=== PATIENT | female | born 1950 | race Caucasian/White ===

== ENCOUNTER 2018-09-27 11:00 | Outpatient (RCR) | payer MEDICARE, OTHER, SELFPAY | END 2018-10-05 23:59 | LOC: DC 11:00 | PROVIDERS: Family Provider Internal Medicine; PCP Internal Medicine; Visit Provider Internal Medicine | DX: E66.8 Other obesity (principal); Z68.41 Body mass index [BMI] 40.0-44.9, adult; E11.9 Type 2 diabetes mellitus without complications; Z71.3 Dietary counseling and surveillance | CPT/HCPCS: 97802; G0108 ==

== ENCOUNTER 2018-10-25 10:45 | Outpatient (RCR) | payer MEDICARE, OTHER, SELFPAY | END 2018-11-05 23:59 | LOC: DC 10:45 | PROVIDERS: Family Provider Internal Medicine; PCP Internal Medicine; Visit Provider Internal Medicine | DX: E66.8 Other obesity (principal); Z68.41 Body mass index [BMI] 40.0-44.9, adult; E11.9 Type 2 diabetes mellitus without complications; Z71.3 Dietary counseling and surveillance | CPT/HCPCS: 97803; G0108 ==